=== PATIENT | female | born 1930 | race Caucasian/White ===

== ENCOUNTER 2020-04-06 15:36 | Inpatient (IN) ==
[2020-04-06 16:12] LABS: Basophils % 0.4 % (0.0-0.8); Eosinophils # 0.3 10*3/uL (0.0-0.87); Eosinophils % 4.3 % (0.00-10.9); Hematocrit 35.5 VOL% (35.7-47.0); Hemoglobin 11.5 GM/DL (12.0-16.0); Immature Granulocytes % 0.3 %; Immature Granulocytes Absolute 0.02 #; Lymphocytes % 29.8 % (21.3-54.2); Mean Corpuscular HGB Conc 32.4 GM/DL (32-36); Mean Corpuscular Volume 100.9 FL (87-102); Mean Platelet Volume 11.3 FL (9.6-12.0); Monocytes % 10.8 % (1.7-12.7); Neutrophils % 54.4 % (38.7-73.9); Platelet Count 244 T/CUMM (130-400); Red Blood Count 3.52 MC/CUMM (3.8-5.5); Red Cell Distribution Width 12.5 % (9.3-17.3); White Blood Count 6.7 T/CUMM (4-12)
[2020-04-06] MEDS ORDERED: SODIUM CHLORIDE 0.9% 1,000 ML IV STA (16:25)
[2020-04-06 16:29] LABS: Alanine Aminotransferase 18 U/L (13-56); Albumin 3.2 G/DL (3.4-5.0); Alkaline Phosphatase 107 U/L (45-117); Aspartate Amino Transferase 17 U/L (0-37); Bilirubin,Total < 0.39 MG/DL (0.2-1.0); Blood Urea Nitrogen 28 MG/DL (7-18); Estimated Glom Filtration Rate 35 ML/MIN; Glucose 118 MG/DL (74-106); Osmolality,Calculated 283.5 MOS/KG (273-304)
[2020-04-06 16:48] LABS: Bacteria,Urine Occasional /HPF (Few); Bilirubin,Urine Negative (Negative); Blood, Urine Negative (Negative); Glucose,Urine (UA) Negative (Negative); Ketones,Urine Negative (Negative); Nitrite,Urine Negative (Negative); Protein,Urine Negative; RBC,Urine <1 /HPF (0-4); Urine Appearance CLEAR (Clear); Urine Color Yellow (Yellow); Urine Specific Gravity 1.009 (1.001-1.035); Urine Urobilinogen < 2.0 EU/DL (0.2-1.0)
[2020-04-06] MEDS ORDERED: PANTOPRAZOLE 40 MG VIAL IV STA (16:59)
[2020-04-06] MEDS ORDERED: ONDANSETRON 4 MG/2 ML VIAL IV PRN (17:30)
[2020-04-06] MEDS ORDERED: DEXTROSE 50% 25 GM/50 ML VIAL IV PRN (17:30)
[2020-04-06] MEDS ORDERED: GLUCAGON 1 MG VIAL IM PRN (17:30)
[2020-04-06] MEDS ORDERED: DOCUSATE SODIUM 100 MG CAPSULE PO PRN (17:30)
[2020-04-06] MEDS ORDERED: LACTULOSE 20 GM/30 ML UDCUP PO PRN (17:30)
[2020-04-06] MEDS ORDERED: hydrALAZINE 20 MG/1 ML VIAL IV PRN (17:30)
[2020-04-06] MEDS ORDERED: SODIUM CHLORIDE 0.9% 1,000 ML IV PRN (18:37)
[2020-04-06] MEDS: SODIUM CHLORIDE 0.9% 1,000 ML IV SCH (18:41)
[2020-04-06 20:45] LABS: Hematocrit 34.4 VOL% (35.7-47.0)
[2020-04-06] MEDS: ALPRAZolam 0.5 MG TABLET PO SCH (21:55)
[2020-04-07 02:03] LABS: Hematocrit 31.7 VOL% (35.7-47.0); Hemoglobin 10.5 GM/DL (12.0-16.0)
[2020-04-07] MEDS ORDERED: LEVOTHYROXINE 50 MCG TABLET PO SCH (06:00)
[2020-04-07 07:22] LABS: Basophils % 0.5 % (0.0-0.8); Eosinophils # 0.3 10*3/uL (0.0-0.87); Eosinophils % 4.6 % (0.00-10.9); Hematocrit 32.1 VOL% (35.7-47.0); Hemoglobin 10.4 GM/DL (12.0-16.0); Immature Granulocytes % 0.3 %; Immature Granulocytes Absolute 0.02 #; Lymphocytes # 1.5 10*3/uL (1.4-4.0); Lymphocytes % 23.2 % (21.3-54.2); Mean Corpuscular HGB Conc 32.4 GM/DL (32-36); Mean Corpuscular Volume 100.6 FL (87-102); Mean Platelet Volume 11.5 FL (9.6-12.0); Monocytes % 11.8 % (1.7-12.7); Neutrophils % 59.6 % (38.7-73.9); Platelet Count 219 T/CUMM (130-400); Red Blood Count 3.19 MC/CUMM (3.8-5.5); Red Cell Distribution Width 12.3 % (9.3-17.3); White Blood Count 6.3 T/CUMM (4-12)
[2020-04-07 07:35] LABS: PT Patient Result 11.1 SECS (9.8-11.9)
[2020-04-07 07:36] LABS: Albumin 2.9 G/DL (3.4-5.0); Bilirubin,Total 0.5 MG/DL (0.2-1.0); Calcium 8.4 MG/DL (8.5-10.1); Osmolality,Calculated 282.3 MOS/KG (273-304); Risk Ratio 2.81; Thyroid Stimulating Hormone 6.5 uIU/ml (0.358-3.74); Total Protein 6.3 G/DL (6.4-8.3); VLDL CHOLESTEROL 20.2 MG/DL
[2020-04-07] MEDS ORDERED: cloNIDine 0.1 MG TABLET PO PRN (07:53)
[2020-04-07 08:34] LABS: Hematocrit 33.5 VOL% (35.7-47.0); Hemoglobin 10.6 GM/DL (12.0-16.0)
[2020-04-07] MEDS ORDERED: MAGNESIUM SULF RIDER 2 GM in PREMIX 1 EACH IV ONE (08:34)
[2020-04-07] MEDS ORDERED: PANTOPRAZOLE 40 MG VIAL IV SCH (09:00)
[2020-04-07] MEDS: ALFUZOSIN 10 MG TABLET PO SCH ×2 (10:02→11:47)
[2020-04-07] MEDS: ALBUTEROL/IPRATROPIUM 3 ML NEB RESP TX SCH ×2 (10:45→19:44)
[2020-04-07] MEDS ORDERED: ALBUTEROL/IPRATROPIUM 3 ML NEB RESP TX ONE (10:55)
[2020-04-07] MEDS: ESCITALOPRAM 10 MG TABLET PO SCH (11:47)
[2020-04-07] MEDS ORDERED: AMOXICILLIN 500 MG CAPSULE PO SCH (14:00)
[2020-04-07] MEDS: ALPRAZolam 0.5 MG TABLET PO SCH ×2 (14:51→20:48)
[2020-04-07] MEDS: PANTOPRAZOLE 40 MG VIAL IV SCH (20:49)
[2020-04-08] MEDS: ALBUTEROL/IPRATROPIUM 3 ML NEB RESP TX SCH ×4 (00:08→19:43)
[2020-04-08 05:27] LABS: Basophils % 0.2 % (0.0-0.8); Eosinophils % 0.3 % (0.00-10.9); Hematocrit 31.9 VOL% (35.7-47.0); Hemoglobin 10.8 GM/DL (12.0-16.0); Immature Granulocytes % 0.3 %; Immature Granulocytes Absolute 0.03 #; Lymphocytes # 1.4 10*3/uL (1.4-4.0); Lymphocytes % 11.9 % (21.3-54.2); Mean Corpuscular HGB Conc 33.9 GM/DL (32-36); Mean Corpuscular Volume 97.6 FL (87-102); Mean Platelet Volume 11.9 FL (9.6-12.0); Monocytes % 11.2 % (1.7-12.7); Neutrophils % 76.1 % (38.7-73.9); Platelet Count 215 T/CUMM (130-400); Red Blood Count 3.27 MC/CUMM (3.8-5.5); Red Cell Distribution Width 12.4 % (9.3-17.3); White Blood Count 11.6 T/CUMM (4-12)
[2020-04-08 05:38] LABS: PT Patient Result 10.9 SECS (9.8-11.9)
[2020-04-08] MEDS: LEVOTHYROXINE 75 MCG TABLET PO SCH (05:45)
[2020-04-08 06:14] LABS: Calcium 8.5 MG/DL (8.5-10.1); Osmolality,Calculated 275.8 MOS/KG (273-304); Total Protein 6.7 G/DL (6.4-8.3)
[2020-04-08] MEDS: SODIUM CHLORIDE 0.9% 1,000 ML IV SCH (07:22)
[2020-04-08] MEDS ORDERED: FLUCONAZOLE 200 MG TABLET PO SCH (09:00)
[2020-04-08] MEDS: ESCITALOPRAM 10 MG TABLET PO SCH (09:26)
[2020-04-08] MEDS: LOSARTAN 50 MG TABLET PO SCH (09:26)
[2020-04-08] MEDS: ALFUZOSIN 10 MG TABLET PO SCH (09:26)
[2020-04-08] MEDS: PANTOPRAZOLE 40 MG VIAL IV SCH ×2 (09:27→20:57)
[2020-04-08] MEDS: FUROSEMIDE 20 MG/2 ML VIAL IV SCH ×2 (11:43→16:58)
[2020-04-08] MEDS: ALPRAZolam 0.5 MG TABLET PO SCH ×2 (13:40→20:57)
[2020-04-09] MEDS: ALBUTEROL/IPRATROPIUM 3 ML NEB RESP TX SCH ×3 (00:10→13:32)
[2020-04-09 05:42] LABS: Basophils % 0.2 % (0.0-0.8); Eosinophils # 0.1 10*3/uL (0.0-0.87); Hematocrit 30.6 VOL% (35.7-47.0); Hemoglobin 10.1 GM/DL (12.0-16.0); Immature Granulocytes % 0.5 %; Immature Granulocytes Absolute 0.06 #; Lymphocytes # 1.3 10*3/uL (1.4-4.0); Lymphocytes % 11.9 % (21.3-54.2); Mean Corpuscular Volume 99.4 FL (87-102); Monocytes % 12.8 % (1.7-12.7); Neutrophils % 73.6 % (38.7-73.9); Platelet Count 198 T/CUMM (130-400); Red Blood Count 3.08 MC/CUMM (3.8-5.5); Red Cell Distribution Width 12.3 % (9.3-17.3); White Blood Count 11.2 T/CUMM (4-12)
[2020-04-09 05:54] LABS: INR 1.1; PT Patient Result 11.4 SECS (9.8-11.9)
[2020-04-09 06:16] LABS: Albumin 2.7 G/DL (3.4-5.0); Bilirubin,Total 1.8 MG/DL (0.2-1.0); Calcium 8.4 MG/DL (8.5-10.1); Total Protein 6.5 G/DL (6.4-8.3)
[2020-04-09] MEDS: LEVOTHYROXINE 75 MCG TABLET PO SCH (06:37)
[2020-04-09] MEDS: ESCITALOPRAM 10 MG TABLET PO SCH (09:46)
[2020-04-09] MEDS: LOSARTAN 50 MG TABLET PO SCH (09:46)
[2020-04-09] MEDS: ALPRAZolam 0.5 MG TABLET PO SCH (09:46)
[2020-04-09] MEDS: ALFUZOSIN 10 MG TABLET PO SCH (09:46)
[2020-04-09] MEDS: PANTOPRAZOLE 40 MG VIAL IV SCH (09:47)
[2020-04-09] MEDS: FUROSEMIDE 20 MG/2 ML VIAL IV SCH ×2 (09:47→16:32)
[2020-04-09] MEDS ORDERED: amLODIPine 10 MG TABLET PO SCH (14:10)
[2020-04-09 16:11] VITALS: BP 129/41
== END 2020-04-09 16:41 | disposition home or self-care (01) | DRG 377 ==
LOC: N.EDINP 15:36 → N.ED 15:36 → OBSVTOIN 18:02 → N.3E 19:44
PROVIDERS: ADMIT Internal Medicine; ATTEND Internal Medicine